=== PATIENT | female | born 1975 | race Caucasian/White ===

== ENCOUNTER 2022-09-21 20:04 | Emergency (ER) | payer BC, SELFPAY ==
--- NOTE | ~2022-09-21 | XR_ITS ---
EXAMINATION: XR chest 2V Exam Date/Time: 09/21/2022 20:24 CDT HISTORY: PALPITATIONS INTERMITTENTLY WITH RT ARM NUMBNESS Comparison: None. RESULT: Lines, tubes, and devices: Cholecystectomy clips. Lungs and pleura: Clear. Cardiomediastinal silhouette: Unremarkable. Other: No acute osseous or upper abdominal finding. IMPRESSION: No acute cardiopulmonary process. Reviewed, dictated and finalized at location [facility].
[2022-09-21 20:07] VITALS: BP 151/93; PULSE 90; RESP 18; TEMP 36.9; O2SAT 100
--- NOTE | 2022-09-21 20:14 | ECG_ITS ---
Measurements Intervals Heath Rate: 94 P: 53 NC: 141 QRS: 2 QRSD: 81 T: 48 QT: 339 QTc: 424 Interpretive Statements SINUS RHYTHM WITH SINUS ARRHYTHMIA RSR' IN V1 OR V2, PROBABLY NORMAL VARIANT LOW QRS VOLTAGE IN PRECORDIAL LEADS BASELINE ARTIFACT- II, III BORDERLINE ECG NO PREVIOUS ECG AVAILABLE FOR COMPARISON Electronically Signed On 09-21-2022 21:08:01 CDT by Tim Tovar D.O.
[2022-09-21 20:26] LABS: Basophils Percent Auto 0.3 % (0.2-1.2); Eosinophils Absolute Auto 0.2 K/mm3 (0-0.3); Eosinophils Percent Auto 2.1 % (0-4.4); Hemoglobin 13.8 g/dL (12.0-15.0); Immature Granulocyte Absolute 0.02 K/mm3 (0.00-0.031); Immature Granulocyte Percent A 0.3 % (0-0.5); Lymphocytes Absolute Auto 2.28 K/mm3 (0.9-3.2); Lymphocytes Percent Auto 32.4 % (18.3-44.2); Mean Corpuscular HGB Conc 32.9 g/dl (32-36); Mean Corpuscular Hemoglobin 29.8 pg (26-34); Mean Corpuscular Volume 90.7 fl (80-100); Mean Platelet Volume 8.9 fl (7.4-10.4); Monocytes Absolute Auto 0.7 K/mm3 (0.1-0.6); Neutrophils Absolute Auto 3.9 K/mm3 (1.3-6.7); Neutrophils Percent Auto 54.9 % (45.5-73.1); Platelet Count Result 317 k/mm3 (150-375); Red Blood Count 4.63 M/mm3 (4.2-5.4); Red Cell Distribution Width 13.1 % (11.5-14.5)
[2022-09-21 20:36] LABS: Alanine Aminotransferase 26 U/L (6-35); Albumin Level 4.7 g/dL (3.5-5.1); Alkaline Phosphatase 62 U/L (38-126); Anion Gap 8 mmol/L (8-16); Aspartate Amino Transferase 27 U/L (14-36); Bilirubin,Total 0.4 mg/dL (0.2-1.3); Blood Urea Nitrogen 17 mg/dL (7-17); Calcium 9.2 mg/dL (8.4-10.2); Carbon Dioxide 29 mmol/L (22-30); Chloride 103 mmol/L (98-107); Estimated CRCL calculation 57 ml/min; Estimated Glomerular Filt Rate > 60; Glucose 112 mg/dL (65-110); Lipase 68 U/L (23-300); Sodium 140 mmol/L (137-145)
[2022-09-21 20:37] LABS: Prothrombin Time 13.5 Seconds (11.1-14.7)
[2022-09-21 20:38] LABS: Partial Thromboplastin Time 26.4 SECONDS (22.3-36.8)
[2022-09-21 20:47] LABS: Troponin I < 0.012 ng/mL (0.000-0.034)
[2022-09-22 05:10] VITALS: BP 122/88; PULSE 75; RESP 16; O2SAT 96
[2022-09-22 08:01] LABS: Anion Gap 8 mmol/L (8-16); Blood Urea Nitrogen 16 mg/dL (7-17); Calcium 9.1 mg/dL (8.4-10.2); Carbon Dioxide 24 mmol/L (22-30); Chloride 105 mmol/L (98-107); Estimated CRCL calculation 57 ml/min; Estimated Glomerular Filt Rate > 60; Glucose 94 mg/dL (65-110); Potassium 4.1 mmol/L (3.4-5.0); Sodium 137 mmol/L (137-145)
[2022-09-22 08:02] LABS: NT Pro B Type Natriuretic Pept 54 pg/mL (19.9-100); Troponin I < 0.012 ng/mL (0.000-0.034)
--- NOTE | 2022-09-27 08:56 | ED.ARRPALP ---
HPI - Arrhythmia/Palpitations General Chief Complaint: Arrhythmia/Palpitations Stated Complaint: palpitations History of Present Illness HPI narrative: 47-year-old female here due to acute on chronic palpitations x1 day. Patient states she has been experiencing palpitations intermittently for the past several months. The palpitations come and go at random but do not last for more than 1 beat at a time. She denies any syncope, lightheadedness or dizziness. Today she wanted to be evaluated because she felt like her heart stopped. She did not lose consciousness during this event. She has been having twinges of chest pain on and off for the past year as well, no worse than usual today. She has had a negative stress test as an outpatient. No leg swelling, cough, congestion, fevers or chills. Review of Systems Review of Systems: Gen.: Denies fevers or chills Eyes: Denies eye pain or visual change ENT: Denies congestion Respiratory: Denies shortness of breath or cough CV: Reports palpitations GI: Denies abdominal pain nausea, emesis or diarrhea denies burning, urgency, frequency or hematuria Musculoskeletal: Denies back pain or muscle pain Neuro: Denies numbness, tingling, weakness or focal weakness Skin: Denies rash Except as documented, all other systems reviewed and negative Exam Narrative: APPEARANCE: Well appearing, no pain in distress, well-nourished. Head: Normocephalic and atraumatic. EYES: PERRLA/EOMI, conjunctivae clear NOSE: No nasal drainage EARS: External ear normal in appearance THROAT: Oropharynx is clear. Mucous membranes are moist. NECK: Supple. No adenopathy, no masses. RESPIRATORY: Airway patent, respirations nonlabored. Clear to auscultation bilaterally, no rales, rhonchi, wheezing. CARDIOVASCULAR: Regular rate and rhythm without murmurs, rubs, or gallops. ABDOMINAL: Normoactive bowel sounds. Soft, nontender, nondistended. No rebound tenderness or guarding. MUSCULOSKELETAL: Extremities are warm and well-perfused. Moves all extremities well. No edema. NEURO: Normal speech. No focal neurologic deficits. SKIN: Skin is warm and dry. No rashes. PSYCHIATRIC: Normal affect/mood. Course Vital Signs Vital signs: Vital Signs Temperature 36.9 C 09/21/22 20:07 Pulse Rate 90 09/21/22 20:07 Respiratory Rate 18 09/21/22 20:07 Blood Pressure 151/93 H 09/21/22 20:07 Pulse Oximetry 100 09/21/22 20:07 Oxygen Delivery Room Air 09/21/22 20:07 Temperature 36.9 C 09/21/22 20:07 Pulse Rate 75 09/22/22 05:10 Respiratory Rate 16 09/22/22 05:10 Blood Pressure 122/88 09/22/22 05:10 Pulse Oximetry 96 09/22/22 05:10 Oxygen Delivery Room Air 09/21/22 20:07 MDM - Arrhythmia/Palpitations MDM Narrative Medical decision making narrative: 47-year-old female here for palpitations intermittently for the past several months but with an episode this evening where she felt like her heart stopped . Patient is nontoxic in appearance and has normal vital signs. Her EKG is in sinus rhythm. Tropes are negative, chest x-ray is clear, basic labs otherwise unremarkable. TSH is normal. Patient had no events on telemetry and had no further episodes of palpitations in the ED. Given chronicity of symptoms and her otherwise well appearance will defer further work-up as an outpatient, understands she may need to wear Holter monitor in the future. Will refer to cardiology if her symptoms persist we discussed return precautions and she voiced understanding. Lab Data 09/21/22 20:18 09/22/22 01:10 Labs: Lab Results 09/21/22 09/22/22 Range/Units 20:18 01:10 WBC 7.0 (4.5-10.0) K/mm3 RBC 4.63 (4.2-5.4) M/mm3 Hgb 13.8 (12.0-15.0) g/dL Hct 42.0 (37.0-47.0) % MCV 90.7 (80-100) fl MCH 29.8 (26-34) pg MCHC 32.9 (32-36) g/dl RDW 13.1 (11.5-14.5) % Plt Count 317 (150-375) k/mm3 MPV 8.9 (7.4-10.4) fl Immature Gran % (Auto)
== END 2022-09-22 05:10 | disposition home or self-care (01) ==
LOC: ANHED 09-22 07:57
PROVIDERS: Emergency Provider Family Medicine; PCP Internal Medicine Geriatric Medicine
DX: R00.2 Palpitations (principal); R94.31 Abnormal electrocardiogram [ECG] [EKG]
CPT/HCPCS: 36415; 71046; 80048; 80053; 83690; 83880; 84443; 84484; 85025; 85610; 85730; 93005; 99284